=== PATIENT | male | born 1960 | race African-American/Black ===

== ENCOUNTER 2017-10-21 21:05 | Inpatient (IN) | payer MEDICARE, MEDICAID ==
[~2017-10-21] VITALS: Ht 170.2 cm; Wt 78.4 kg
[2017-10-21 22:14] LABS: BASOPHILS % (AUTO) 0.7 % (0.0-2.0); EOSINOPHILS % (AUTO) 1.2 % (0.0-3.0); HEMATOCRIT 33.3 % (42.0-52.0); LYMPHOCYTES % (AUTO) 6.7 % (20.0-45.0); MEAN CORPUSCULAR VOLUME 93 FL (80-99); MONOCYTES % (AUTO) 11.7 % (1.0-10.0); NEUTROPHILS % (AUTO) 79.8 % (45.0-75.0); PLATELET COUNT 263 K/UL (150-450); RED BLOOD COUNT 3.58 M/UL (4.70-6.10); RED CELL DISTRIBUTION WIDTH 12.5 % (11.6-14.8); WHITE BLOOD COUNT 6.7 K/UL (4.8-10.8)
[2017-10-21 22:26] LABS: ANION GAP 12 mmol/L (5-15); BLOOD UREA NITROGEN 30 mg/dL (7-18); CALCIUM 9.6 MG/DL (8.5-10.1); CARBON DIOXIDE 29 MMOL/L (21-32); CHLORIDE 95 MMOL/L (98-107); CREATININE 8.4 MG/DL (0.55-1.30); INR 1.1 (0.9-1.1); POTASSIUM 3.5 MMOL/L (3.5-5.1); SODIUM 136 MMOL/L (136-145)
[2017-10-21 22:39] LABS: ALANINE AMINOTRANSFERASE 34 U/L (12-78); ALBUMIN 3.6 G/DL (3.4-5.0); ALBUMIN/GLOBULIN RATIO 0.9 (1.0-2.7); ALKALINE PHOSPHATASE 45 U/L (46-116); ASPARTATE AMINO TRANSFERASE 18 U/L (15-37); BILIRUBIN,TOTAL 0.5 MG/DL (0.2-1.0); CKMB 1.6 NG/ML (0.0-3.6); CREATINE KINASE 214 U/L (26-308)
[2017-10-21 22:59] VITALS: BP 130/70
[2017-10-21] MEDS ORDERED: CATAPRES0.3 MG ORAL (23:00)
[2017-10-21] MEDS ORDERED: MINOXIDIL10 MG PO (23:00)
[2017-10-21] MEDS ORDERED: RENVELA0.8 GM ORAL (23:00)
[2017-10-21] MEDS ORDERED: SENSIPAR30 MG ORAL (23:00)
[2017-10-21] MEDS ORDERED: LOSARTAN POTASS50 MG ORAL (23:00)
[2017-10-21] MEDS ORDERED: ADALAT20 MG ORAL (23:00)
[2017-10-21] MEDS ORDERED: METOPROLOL SUCC50 MG ORAL (23:00)
[2017-10-21] MEDS ORDERED: FUROSEMIDE40 MG ORAL (23:00)
[2017-10-22 01:00] VITALS: BP 145/87
[2017-10-22] MEDS ORDERED: Morphine Sulfate 2mg/ml Inj IVP PRN (03:00)
[2017-10-22 04:00] VITALS: BP 141/86
--- NOTE | 2017-10-22 04:39 | Emergency Room Report ---
History of Present Illness General Chief Complaint: Palpitations Source: Patient Present Illness HPI The patient is a 57-year-old male who presented after increased palpitations. Patient prior history of end-stage renal disease. He had been undergoing dialysis when he began having some palpitations. Patient recently had medications altered and was recently started on minoxidil for blood pressure. The patient stated that he began retaining water. He denied prior history of myocardial infarction. Patient had not been vomiting. He denied any shortness of breath. He reported having intermittent chest pain. Allergies: Coded Allergies: CODEINE (Verified Allergy, Unknown, 10/21/17) Patient History Past Medical History: see triage record Reviewed Nursing Documentation: PMH: Agreed, PSxH: Agreed Nursing Documentation-PMH Past Medical History: No History, Except For Hx Cardiac Problems: Yes - cardiac arrest 2016 Hx Hypertension: Yes Hx Dialysis: Yes - MF Hx Neurological Problems: No Review of Systems All Other Systems: negative except mentioned in HPI Physical Exam Vital Signs Date Time Temp Pulse Resp B/P (MAP) Pulse Ox O2 Delivery O2 Flow Rate FiO2 10/21/17 21:04 98.6 121 18 137/81 98 Room Air 98.6 General Appearance: well appearing, no apparent distress, alert, GCS 15 Head: normocephalic, atraumatic ENT: hearing grossly normal, normal voice Neck: full range of motion, supple Respiratory: no respiratory distress, speaking full sentences Cardiovascular #1: normal peripheral pulses, edema Gastrointestinal: normal bowel sounds, non tender, soft Musculoskeletal: no calf tenderness Neurologic: normal inspection, alert, oriented x3, responsive, normal gait Psychiatric: normal inspection, mood/affect normal Skin: no rash Medical Decision Making Diagnostic Impression: Primary Impression: Palpitations Additional Impression: ESRD (end stage renal disease) on dialysis ER Course Patient presented for palpitations. The differential diagnosis included was not limited to arrhythmia, thyroid storm, sepsis, anemia, myocardial infarction , alcohol withdrawal, stimulant abuse, caffeine overdose among others. Because of complexity of patient's case laboratory testing and imaging studies were ordered.I laboratory testing was notable for normal troponin. I EKG interpreted by me showed normal sinus rhythm with a slight prolonged QT interval there are no acute ST changes noted. The patient was noted to have some evidence of fluid overload. A chest x-ray had improvement showed mild cardiomegaly without evident infiltrate.Dr. Arvind Soler was contacted for inpatient management. Labs Test 10/21/17 21:53 White Blood Count 6.7 K/UL (4.8-10.8) Red Blood Count 3.58 M/UL (4.70-6.10) Hemoglobin 11.0 G/DL (14.2-18.0) Hematocrit 33.3 % (42.0-52.0) Mean Corpuscular Volume 93 FL (80-99) Mean Corpuscular Hemoglobin 30.9 PG (27.0-31.0) Mean Corpuscular Hemoglobin Concent 33.2 G/DL (32.0-36.0) Red Cell Distribution Width 12.5 % (11.6-14.8) Platelet Count 263 K/UL (150-450) Mean Platelet Volume 6.2 FL (6.5-10.1) Neutrophils (%) (Auto) 79.8 % (45.0-75.0) Lymphocytes (%) (Auto) 6.7 % (20.0-45.0) Monocytes (%) (Auto) 11.7 % (1.0-10.0) Eosinophils (%) (Auto) 1.2 % (0.0-3.0) Basophils (%) (Auto) 0.7 % (0.0-2.0) Prothrombin Time 11.4 SEC (9.30-11.50) Prothromb Time International Ratio 1.1 (0.9-1.1) Activated Partial Thromboplast Time 28 SEC (23-33) Sodium Level 136 MMOL/L (136-145) Potassium Level 3.5 MMOL/L (3.5-5.1) Chloride Level 95 MMOL/L (98-107) Carbon Dioxide Level 29 MMOL/L (21-32) Anion Gap 12 mmol/L (5-15) Blood Urea Nitrogen 30 mg/dL (7-18) Creatinine 8.4 MG/DL (0.55-1.30) Estimat Glomerular Filtration Rate 8.0 mL/min (>60) Glucose Level 85 MG/DL (74-106) Calcium Level 9.6 MG/DL (8.5-10.1) Total Bilirubin 0.5 MG/DL (0.2-1.0) Aspartate Amino Transf (AST/SGOT) 18 U/L (15-37) Alanine Aminotransferase (ALT/SGPT) 34 U/L (12-78) Alkaline Phosphatase 45 U/L (46-116) Total Creatine Kinase 214 U/L (26-308) Creatine Kinase MB 1.6 NG/ML (0.0-3.6) Creatine Kinase MB Relative Index 0.7 Troponin I 0.097 ng/mL (0.000-0.056) Pro-B-Type Natriuretic Peptide 65471 pg/mL (0-125) Total Protein 7.8 G/DL (6.4-8.2) Albumin 3.6 G/DL (3.4-5.0) Globulin 4.2 g/dL Albumin/Globulin Ratio 0.9 (1.0-2.7) EKG Diagnostic Results Rate: normal Rhythm: NSR ST Segments: no acute changes Rhythm Strip Diag. Results EP Interpretation: yes Rhythm: NSR, no PVC's, no ectopy Last Vital Signs Date Time Temp Pulse Resp B/P (MAP) Pulse Ox O2 Delivery O2 Flow Rate FiO2 10/22/17 04:00 77 10/22/17 01:00 99.0 20 145/87 94 Room Air 99.0 Status: unchanged Disposition: ADMITTED INPATIENT Condition: Stable Referrals: NON PHYSICIAN (PCP) Ruslan Warren Oct 22, 2017 04:39
[2017-10-22 08:00] VITALS: BP 134/73
[2017-10-22] MEDS: Heparin 5000 units/ml inj SUBQ SCH ×2 (08:10→23:57)
--- NOTE | 2017-10-22 10:42 | Diagnostic Imaging Report ---
Indication: Dyspnea Comparison: None A single view chest radiograph was obtained. Findings: No definite infiltrate or pulmonary vascular congestion identified. The left hemidiaphragm is slightly elevated. The heart is enlarged. The aorta is mildly enlarged consistent with atherosclerotic vascular disease. The bones are unremarkable. Impression: No acute disease
--- NOTE | 2017-10-22 10:52 | Consultation ---
Consult Note Consult Note The patient is a 57-year-old male who presented after increased palpitations. Patient prior history of end-stage renal disease. He had been undergoing dialysis when he began having some palpitations. Patient recently had medications altered and was recently started on minoxidil for blood pressure. The patient stated that he began retaining water. He denied prior history of myocardial infarction. Patient had not been vomiting. He denied any shortness of breath. He reported having intermittent chest pain. Allergies: Coded Allergies: CODEINE (Verified Allergy, Unknown, 10/21/17) Past Medical History: No History, Except For Hx Cardiac Problems: Yes - cardiac arrest 2016 Hx Hypertension: Yes Hx Dialysis: Yes - MF interviewed examined data reviewed . Assessment/Plan CHF Cardiac Ischemia' ESRD Plan: HD and UF today Adjust BP meds per orders VERONA HONEYCUTT Oct 22, 2017 10:52
[2017-10-22 12:00] VITALS: BP 145/82
[2017-10-22] MEDS: Renvela 800mg Pkt ORAL SCH ×2 (13:46→17:05)
[2017-10-22] MEDS: cloNIDine 0.2mg Tab ORAL SCH ×2 (14:00→23:54)
--- NOTE | 2017-10-22 14:22 | Cardiac Electrophysiology PN ---
Subjective Subjective Cardiology consult dictated Objective Last 24 Hour Vital Signs Date Time Temp Pulse Resp B/P (MAP) Pulse Ox O2 Delivery O2 Flow Rate FiO2 10/22/17 12:00 97.9 78 18 145/82 94 Nasal Cannula 2.0 97.9 10/22/17 08:00 98.5 75 18 134/73 96 Nasal Cannula 2.0 98.5 10/22/17 08:00 84 10/22/17 04:00 98.8 74 19 141/86 96 Nasal Cannula 2.0 98.8 10/22/17 04:00 77 10/22/17 01:00 99.0 76 20 145/87 94 Room Air 99.0 10/22/17 00:15 98.6 79 23 130/70 95 Room Air 98.6 10/22/17 00:00 81 10/21/17 22:59 79 23 130/70 95 Room Air 10/21/17 21:04 98.6 121 18 137/81 98 Room Air 98.6 Intake and Output 10/21/17 10/22/17 19:00 07:00 Intake Total 0 ml Balance 0 ml Intake Oral 0 ml Laboratory Tests Test 10/21/17 21:53 10/22/17 09:23 White Blood Count 6.7 K/UL (4.8-10.8) Red Blood Count 3.58 M/UL (4.70-6.10) L Hemoglobin 11.0 G/DL (14.2-18.0) L Hematocrit 33.3 % (42.0-52.0) L Mean Corpuscular Volume 93 FL (80-99) Mean Corpuscular Hemoglobin 30.9 PG (27.0-31.0) Mean Corpuscular Hemoglobin Concent 33.2 G/DL (32.0-36.0) Red Cell Distribution Width 12.5 % (11.6-14.8) Platelet Count 263 K/UL (150-450) Mean Platelet Volume 6.2 FL (6.5-10.1) L Neutrophils (%) (Auto) 79.8 % (45.0-75.0) H Lymphocytes (%) (Auto) 6.7 % (20.0-45.0) L Monocytes (%) (Auto) 11.7 % (1.0-10.0) H Eosinophils (%) (Auto) 1.2 % (0.0-3.0) Basophils (%) (Auto) 0.7 % (0.0-2.0) Prothrombin Time 11.4 SEC (9.30-11.50) Prothromb Time International Ratio 1.1 (0.9-1.1) Activated Partial Thromboplast Time 28 SEC (23-33) Sodium Level 136 MMOL/L (136-145) Potassium Level 3.5 MMOL/L (3.5-5.1) Chloride Level 95 MMOL/L (98-107) L Carbon Dioxide Level 29 MMOL/L (21-32) Anion Gap 12 mmol/L (5-15) Blood Urea Nitrogen 30 mg/dL (7-18) H Creatinine 8.4 MG/DL (0.55-1.30) H Estimat Glomerular Filtration Rate 8.0 mL/min (>60) Glucose Level 85 MG/DL (74-106) Calcium Level 9.6 MG/DL (8.5-10.1) Total Bilirubin 0.5 MG/DL (0.2-1.0) Aspartate Amino Transf (AST/SGOT) 18 U/L (15-37) Alanine Aminotransferase (ALT/SGPT) 34 U/L (12-78) Alkaline Phosphatase 45 U/L (46-116) L Total Creatine Kinase 214 U/L (26-308) Creatine Kinase MB 1.6 NG/ML (0.0-3.6) Creatine Kinase MB Relative Index 0.7 Troponin I 0.097 ng/mL (0.000-0.056) 0.502 ng/mL (0.000-0.056) Pro-B-Type Natriuretic Peptide 53815 pg/mL (0-125) H Total Protein 7.8 G/DL (6.4-8.2) Albumin 3.6 G/DL (3.4-5.0) Globulin 4.2 g/dL Albumin/Globulin Ratio 0.9 (1.0-2.7) L C-Reactive Protein, Quantitative 1.0 mg/dL (0.00-0.90) H RIVKA YU Oct 22, 2017 14:22
[2017-10-22 16:00] VITALS: BP 161/86
--- NOTE | 2017-10-22 16:30 | History and Physical Report ---
DATE OF ADMISSION: 10/21/2017 ATTENDING PHYSICIAN: Arvind Soler D.O. CONSULTANTS: 1. Dino Ordaz M.D. 2. Luiz Gallagher M.D. CHIEF COMPLAINT: Palpitation, ESRD, and tachycardia. BRIEF HISTORY: A 57-year-old male with a history of ESRD. Apparently has some palpitations yesterday. His Nephrology recently started minoxidil, after which he became having palpitations and tachycardic, came to [facility] last night, and admitted for the above-mentioned diagnoses. Currently calm in bed, O2 NC, slightly short of breath, no complaint otherwise. PAST MEDICAL HISTORY: Palpitation, ESRD, tachycardia, hypertension, and elevated troponin. PAST SURGICAL HISTORY: Fistula, left arm. MEDICATIONS: Heparin, dextrose, morphine, Tylenol, and Zofran. ALLERGIES: Codeine. SOCIAL HISTORY: No smoking. No alcohol. No intravenous drug abuse. FAMILY HISTORY: Noncontributory. REVIEW OF SYSTEMS: Slight chest pain. Slight shortness of breath. No nausea, vomiting, or diarrhea. PHYSICAL EXAMINATION: GENERAL: Calm in bed, oriented x3, in no acute distress. O2 NC in place. VITAL SIGNS: Temperature is 98 degrees, pulse 75, respirations 18, and blood pressure 134/73. CARDIOVASCULAR: No murmur. LUNGS: Poor exchange. ABDOMEN: Bowel sounds distant. EXTREMITIES: No cyanosis, clubbing, or edema. NEUROLOGIC: The patient moves all extremities, slightly weak. LABORATORY AND DIAGNOSTIC DATA: Hemoglobin and hematocrit 11/33, otherwise, CBC is normal. BMP shows chloride 95. BUN and creatinine 30/8.4. Alkaline phosphatase 45. Troponin 0.097. BNP is 21,722. INR is 1.1 and PTT is 28. ASSESSMENT: 1. Palpitations. 2. End-stage renal disease. 3. Chest pain. 4. Elevated troponin. 5. Tachycardia. 6. Hypertension. PLAN: 1. Continue premedications. 2. Dialysis per Nephrology. 3. Blood pressure control. 4. Pain control. 5. Dietary followup. 6. We will continue to follow this patient medically. 7. CBC and BMP in the morning. Arvind Soler D.O. DR: Luis Manuel JOB#: [id number] CC:
[2017-10-22] MEDS: Losartan 50mg tab ORAL SCH (17:05)
[2017-10-22 20:00] VITALS: BP 185/95
[2017-10-23] VITALS (7 sets, daily range): BP systolic 144–166; BP diastolic 79–93
[2017-10-23 04:19] LABS: BASOPHILS % (AUTO) 1.1 % (0.0-2.0); EOSINOPHILS % (AUTO) 4.9 % (0.0-3.0); HEMATOCRIT 27.9 % (42.0-52.0); HEMOGLOBIN 9.3 G/DL (14.2-18.0); MEAN CORPUSCULAR VOLUME 93 FL (80-99); MONOCYTES % (AUTO) 18.1 % (1.0-10.0); PLATELET COUNT 245 K/UL (150-450); RED CELL DISTRIBUTION WIDTH 12.3 % (11.6-14.8)
--- NOTE | 2017-10-23 04:30 | Consultation ---
DATE OF CONSULTATION: 10/22/2017 NOTE: POOR AUDIO CARDIOLOGY CONSULTATION CONSULTING PHYSICIAN: Dino Ordaz M.D. REFERRING PHYSICIAN: Arvind Soler D.O. REASON FOR CONSULTATION: Tachycardia and palpitation. HISTORY OF PRESENT ILLNESS: The patient is a 57-year-old, gentleman with history of hypertension, diabetes, and end-stage renal disease, on hemodialysis, who was undergoing hemodialysis when he suddenly started developing palpitation. The patient about three weeks ago was started on minoxidil for blood pressure and he states that he has been retaining water. He states that they veda four liters of fluid during hemodialysis and then he started having palpitation. Heart rate was around 140 reportedly. The patient was admitted and Cardiology consultation was requested for further evaluation and management. Troponin was also elevated. PAST MEDICAL HISTORY: As mentioned above. SOCIAL HISTORY: He lives at home. Does not smoke or drink alcohol. FAMILY HISTORY: Noncontributory. REVIEW OF SYSTEMS: Review of systems was negative other than what was mentioned in the history of present illness. PHYSICAL EXAMINATION: VITAL SIGNS: Blood pressure is 140/82, pulse 78, respirations 18, and temperature 98. HEAD AND NECK: Showed no JVD. LUNGS: Clear. CARDIOVASCULAR: Shows regular S1 and S2 with no gallop or murmur. ABDOMEN: Soft. EXTREMITIES: He has 2+ lower extremity edema as well as AV fistula, left arm. LABORATORY AND DIAGNOSTIC DATA: His EKG shows sinus rhythm with left anterior fascicular block and nonspecific ST-T wave abnormalities. His labs show white count of 6.7, hemoglobin 11, hematocrit 33, and platelet count of 263. Sodium is 136, potassium 3.4, BUN of 30, creatinine 8.4, and glucose of 84. His labs show troponin of 0.09 and then 0.502. BNP is 21,000. ASSESSMENT AND PLAN: 1. Troponin elevation. limits of low level and likely due to the patient's renal failure. The patient denies any chest pain or shortness of breath. He underwent an echocardiogram that showed ejection fraction of 70% to 75% with left ventricular hypertrophy. I will get another set of cardiac enzymes. Continue Toprol-XL 50 mg daily. Add aspirin to his medical regimen. Check fasting lipid profile acute coronary syndrome. 2. Palpitations. Continue on telemetry. Continue Toprol-XL. Could be SVT or atrial fibrillation. We do not have clear documentation of arrhythmia. 3. Hypertension, on Toprol-XL 50 mg and Cozaar 50 mg b.i.d. and Procardia XL 60 mg b.i.d. and clonidine 0.2 mg every eight hours. He is also on hemodialysis. 4. End-stage renal disease, on hemodialysis per Dr. Gallagher. Thank you very much, Dr. Soler, for allowing me to participate in the care of this patient. Please do not hesitate to contact me if you have any questions regarding my evaluation. Dino Ordaz M.D. DR: Radha JOB#: [id number] CC:
[2017-10-23 04:41] LABS: ALANINE AMINOTRANSFERASE 27 U/L (12-78); ALBUMIN/GLOBULIN RATIO 0.8 (1.0-2.7); ALKALINE PHOSPHATASE 38 U/L (46-116); ANION GAP 3 mmol/L (5-15); ASPARTATE AMINO TRANSFERASE 17 U/L (15-37); BILIRUBIN,DIRECT 0.1 MG/DL (0.0-0.3); BILIRUBIN,TOTAL 0.4 MG/DL (0.2-1.0); BLOOD UREA NITROGEN 22 mg/dL (7-18); CALCIUM 8.8 MG/DL (8.5-10.1); CARBON DIOXIDE 38 MMOL/L (21-32); CHLORIDE 99 MMOL/L (98-107); CHOLESTEROL 143 MG/DL (< 200); CREATININE 7.2 MG/DL (0.55-1.30); GAMMA GLUTAMYL TRANSPEPTIDASE 44 U/L (5-85); HDL CHOLESTEROL 70 MG/DL (40-60); PHOSPHORUS 4.5 MG/DL (2.5-4.9); POTASSIUM 4.2 MMOL/L (3.5-5.1); SODIUM 140 MMOL/L (136-145); TRIGLYCERIDES 41 MG/DL (30-150)
[2017-10-23] MEDS: cloNIDine 0.2mg Tab ORAL SCH ×3 (06:19→21:33)
[2017-10-23] MEDS: Metoprolol Succinate XL 50mg tab ORAL SCH (08:08)
[2017-10-23] MEDS: Losartan 50mg tab ORAL SCH ×2 (08:08→18:13)
[2017-10-23] MEDS: Renvela 800mg Pkt ORAL SCH ×3 (08:09→18:12)
[2017-10-23] MEDS: Sensipar 30mg Tab ORAL SCH (08:09)
[2017-10-23] MEDS: Heparin 5000 units/ml inj SUBQ SCH ×2 (08:10→21:32)
--- NOTE | 2017-10-23 09:14 | General Progress Note ---
Assessment/Plan Problem List: (1) HTN (hypertension) ICD Codes: I10 - Essential (primary) hypertension SNOMED: 18363479 (2) Palpitations ICD Codes: R00.2 - Palpitations SNOMED: 72029115 (3) ESRD (end stage renal disease) on dialysis ICD Codes: N18.6 - End stage renal disease; Z99.2 - Dependence on renal dialysis SNOMED: 172510161 Status: stable, progressing, tolerating diet Assessment/Plan o2 pulm tx cardio neph f/u cbc bmp am dc plan Subjective Constitutional: Reports: weakness Allergies: Coded Allergies: CODEINE (Verified Allergy, Mild, 10/22/17) VOMITING All Systems: reviewed and negative except above Subjective calm no cp Objective Last 24 Hour Vital Signs Date Time Temp Pulse Resp B/P (MAP) Pulse Ox O2 Delivery O2 Flow Rate FiO2 10/23/17 08:09 76 144/79 10/23/17 08:08 76 144/79 10/23/17 08:08 144/79 10/23/17 08:00 98.2 76 18 144/79 97 Nasal Cannula 2.0 98.2 10/23/17 06:19 178/83 10/23/17 04:00 98.2 77 18 153/79 97 Nasal Cannula 2.0 98.2 10/23/17 04:00 77 10/23/17 01:03 91 162/93 Nasal Cannula 2.0 10/23/17 00:00 98.8 97 20 166/87 93 98.8 10/23/17 00:00 99 10/22/17 23:54 189/87 10/22/17 22:30 Nasal Cannula 2.0 10/22/17 20:00 87 10/22/17 20:00 97.0 80 18 185/95 99 97.0 10/22/17 18:55 Nasal Cannula 2.0 10/22/17 17:06 82 161/86 10/22/17 17:05 161/86 10/22/17 16:00 98.2 83 22 161/86 94 Nasal Cannula 2.0 98.2 10/22/17 16:00 82 10/22/17 14:00 145/82 10/22/17 12:00 97.9 78 18 145/82 94 Nasal Cannula 2.0 97.9 10/22/17 12:00 80 Intake and Output 10/22/17 10/23/17 19:00 07:00 Intake Total 800 ml Output Total 3660 ml Balance 800 ml -3660 ml Intake Oral 800 ml Output Urine Total 200 ml Hemodialysis UF 3460 ml # Bowel Movements 1 Laboratory Tests 10/22/17 09:23: Troponin I 0.502H, C-Reactive Protein, Quantitative 1.0H 10/22/17 15:15: Troponin I 0.411H 10/22/17 19:39: Troponin I 0.379H 10/23/17 03:50: Troponin I 0.287H, C-Reactive Protein, Quantitative 0.8, White Blood Count 5.0, Red Blood Count 3.00L, Hemoglobin 9.3L, Hematocrit 27.9L, Mean Corpuscular Volume 93, Mean Corpuscular Hemoglobin 31.1H, Mean Corpuscular Hemoglobin Concent 33.5, Red Cell Distribution Width 12.3, Platelet Count 245, Mean Platelet Volume 5.8L, Neutrophils (%) (Auto) 56.0, Lymphocytes (%) (Auto) 20.0, Monocytes (%) (Auto) 18.1H, Eosinophils (%) (Auto) 4.9H, Basophils (%) (Auto) 1.1, Sodium Level 140, Potassium Level 4.2, Chloride Level 99, Carbon Dioxide Level 38H, Anion Gap 3L, Blood Urea Nitrogen 22H, Creatinine 7.2H, Estimat Glomerular Filtration Rate 9.6, Glucose Level 93, Hemoglobin A1c 5.6, Uric Acid 2.4L, Calcium Level 8.8, Phosphorus Level 4.5, Magnesium Level 1.8, Total Bilirubin 0.4, Direct Bilirubin 0.1, Gamma Glutamyl Transpeptidase 44, Aspartate Amino Transf (AST/SGOT) 17, Alanine Aminotransferase (ALT/SGPT) 27, Alkaline Phosphatase 38L, Pro-B-Type Natriuretic Peptide 69481E, Total Protein 6.7, Albumin 3.0L, Globulin 3.7, Albumin/Globulin Ratio 0.8L, Triglycerides Level 41, Cholesterol Level 143, LDL Cholesterol 68, HDL Cholesterol 70H, Cholesterol/HDL Ratio 2.0L, Thyroid Stimulating Hormone (TSH) 1.805, Free Thyroxine 1.10 Height (Feet): 5 Height (Inches): 7.00 Weight (Pounds): 172 General Appearance: alert EENT: normal ENT inspection Neck: normal alignment Cardiovascular: normal peripheral pulses, normal rate, regular rhythm Respiratory/Chest: chest wall non-tender, lungs clear, normal breath sounds Abdomen: normal bowel sounds, non tender, soft Extremities: normal inspection Edema: no edema noted Arm (L), no edema noted Arm (R), no edema noted Leg (L), no edema noted Leg (R), no edema noted Pedal (L), no edema noted Pedal (R), no edema noted Generalized Neurologic: responsive, motor weakness Skin: normal pigmentation, warm/dry SHANE RAINES Oct 23, 2017 09:14
--- NOTE | 2017-10-23 11:48 | Nephrology Progress Note ---
Assessment/Plan Problem List: (1) ESRD (end stage renal disease) on dialysis (2) HTN (hypertension) Assessment CHF Cardiac Ischemia' ESRD Plan Plan: HD and UF yesterday Next HD in am if still in house Adjust BP meds per orders / cardiology Subjective ROS Limited/Unobtainable: No Objective Objective Last 24 Hour Vital Signs Date Time Temp Pulse Resp B/P (MAP) Pulse Ox O2 Delivery O2 Flow Rate FiO2 10/23/17 08:09 76 144/79 10/23/17 08:08 76 144/79 10/23/17 08:08 144/79 10/23/17 08:00 98.2 76 18 144/79 97 Nasal Cannula 2.0 98.2 10/23/17 08:00 71 10/23/17 06:19 178/83 10/23/17 04:00 98.2 77 18 153/79 97 Nasal Cannula 2.0 98.2 10/23/17 04:00 77 10/23/17 01:03 91 162/93 Nasal Cannula 2.0 10/23/17 00:00 98.8 97 20 166/87 93 98.8 10/23/17 00:00 99 10/22/17 23:54 189/87 10/22/17 22:30 Nasal Cannula 2.0 10/22/17 20:00 87 10/22/17 20:00 97.0 80 18 185/95 99 97.0 10/22/17 18:55 Nasal Cannula 2.0 10/22/17 17:06 82 161/86 10/22/17 17:05 161/86 10/22/17 16:00 98.2 83 22 161/86 94 Nasal Cannula 2.0 98.2 10/22/17 16:00 82 10/22/17 14:00 145/82 10/22/17 12:00 97.9 78 18 145/82 94 Nasal Cannula 2.0 97.9 10/22/17 12:00 80 Intake and Output 10/22/17 10/23/17 19:00 07:00 Intake Total 800 ml Output Total 3660 ml Balance 800 ml -3660 ml Intake Oral 800 ml Output Urine Total 200 ml Hemodialysis UF 3460 ml # Bowel Movements 1 Laboratory Tests 10/22/17 15:15: Troponin I 0.411H 10/22/17 19:39: Troponin I 0.379H 10/23/17 03:50: Troponin I 0.287H, White Blood Count 5.0, Red Blood Count 3.00L, Hemoglobin 9.3L , Hematocrit 27.9L, Mean Corpuscular Volume 93, Mean Corpuscular Hemoglobin 31.1H, Mean Corpuscular Hemoglobin Concent 33.5, Red Cell Distribution Width 12.3, Platelet Count 245, Mean Platelet Volume 5.8L, Neutrophils (%) (Auto) 56.0 , Lymphocytes (%) (Auto) 20.0, Monocytes (%) (Auto) 18.1H, Eosinophils (%) (Auto ) 4.9H, Basophils (%) (Auto) 1.1, Sodium Level 140, Potassium Level 4.2, Chloride Level 99, Carbon Dioxide Level 38H, Anion Gap 3L, Blood Urea Nitrogen 22H, Creatinine 7.2H, Estimat Glomerular Filtration Rate 9.6, Glucose Level 93, Hemoglobin A1c 5.6, Uric Acid 2.4L, Calcium Level 8.8, Phosphorus Level 4.5, Magnesium Level 1.8, Total Bilirubin 0.4, Direct Bilirubin 0.1, Gamma Glutamyl Transpeptidase 44, Aspartate Amino Transf (AST/SGOT) 17, Alanine Aminotransferase (ALT/SGPT) 27, Alkaline Phosphatase 38L, C-Reactive Protein, Quantitative 0.8, Pro-B-Type Natriuretic Peptide 10040K, Total Protein 6.7, Albumin 3.0L, Globulin 3.7, Albumin/Globulin Ratio 0.8L, Triglycerides Level 41 , Cholesterol Level 143, LDL Cholesterol 68, HDL Cholesterol 70H, Cholesterol/ HDL Ratio 2.0L, Thyroid Stimulating Hormone (TSH) 1.805, Free Thyroxine 1.10 Height (Feet): 5 Height (Inches): 7.00 Weight (Pounds): 172 General Appearance: no apparent distress, other - feels better Cardiovascular: regular rhythm Respiratory/Chest: decreased breath sounds Abdomen: soft VERONA HONEYCUTT Oct 23, 2017 11:48
--- NOTE | 2017-10-23 15:45 | Cardiology Report ---
APPROVED REPORT EXAM: Two-dimensional and M-mode echocardiogram with Doppler and color Doppler. INDICATION HYPERTENSION M-Mode DIMENSIONS IVSd1.7 (0.7-1.1cm)Left Atrium (MM)4.5 (1.6-4.0cm) LVDd4.8 (3.5-5.6cm)Aortic Root4.8 (2.0-3.7cm) PWd1.8 (0.7-1.1cm)Aortic Cusp Exc.2.5 (1.5-2.0cm) IVSs2.7 cm LVDs2.7 (2.5-4.0cm) PWs1.8 cm Normal left ventricular chamber size, systolic function and wall motion. Left ventricular ejection fraction estimated to be 70-75 %. Moderate to severe left ventricular hypertrophy by 2-D. No evidence of pericardial effusion Mild bi-atrial enlargements . Mildly Focal aortic valve sclerosis . Mildly Thickened mitral valve leaflets . Mitral annulus and aortic root calcification. Normal Pulmonic valve structure. Normal tricuspid valve structure. IVC at size 2.7 without physiologic collapse, suggestive of increased RA pressure. A color flow and spectral Doppler study was performed and revealed: No aortic regurgitation. Mild to moderate mitral regurgitation. Normal left ventricular diastolic function . Trace to Mild tricuspid regurgitation. Tricuspid systolic velocities suggests peak right ventricular systolic pressure of 18 mmH . trace Pulmonic regurgitation present
[2017-10-24] VITALS (7 sets, daily range): BP systolic 144–203; BP diastolic 80–116
[2017-10-24] MEDS: cloNIDine 0.2mg Tab ORAL SCH ×3 (06:00→20:47)
[2017-10-24] MEDS: Metoprolol Succinate XL 50mg tab ORAL SCH (09:00)
[2017-10-24] MEDS: Losartan 50mg tab ORAL SCH ×2 (09:00→18:00)
[2017-10-24 09:15] LABS: BASOPHILS % (AUTO) 0.8 % (0.0-2.0); EOSINOPHILS % (AUTO) 7.5 % (0.0-3.0); HEMATOCRIT 29.8 % (42.0-52.0); HEMOGLOBIN 9.8 G/DL (14.2-18.0); LYMPHOCYTES % (AUTO) 24.7 % (20.0-45.0); MEAN CORPUSCULAR VOLUME 94 FL (80-99); MONOCYTES % (AUTO) 16.5 % (1.0-10.0); NEUTROPHILS % (AUTO) 50.6 % (45.0-75.0); PLATELET COUNT 237 K/UL (150-450); RED BLOOD COUNT 3.18 M/UL (4.70-6.10); RED CELL DISTRIBUTION WIDTH 12.4 % (11.6-14.8); WHITE BLOOD COUNT 4.3 K/UL (4.8-10.8)
[2017-10-24 09:32] LABS: ANION GAP 7 mmol/L (5-15); BLOOD UREA NITROGEN 34 mg/dL (7-18); CALCIUM 9.8 MG/DL (8.5-10.1); CARBON DIOXIDE 36 MMOL/L (21-32); CHLORIDE 98 MMOL/L (98-107); CREATININE 10.8 MG/DL (0.55-1.30); POTASSIUM 4.5 MMOL/L (3.5-5.1); SODIUM 141 MMOL/L (136-145)
[2017-10-24] MEDS: Sensipar 30mg Tab ORAL SCH (09:41)
[2017-10-24] MEDS: Renvela 800mg Pkt ORAL SCH ×3 (09:41→18:00)
[2017-10-24] MEDS: Heparin 5000 units/ml inj SUBQ SCH ×2 (09:42→20:47)
[2017-10-24] MEDS ORDERED: Lexiscan 0.4mg/5ml syringe IV PRN (13:00)
--- NOTE | 2017-10-24 13:53 | Nephrology Progress Note ---
Assessment/Plan Problem List: (1) ESRD (end stage renal disease) on dialysis (2) HTN (hypertension) Assessment CHF Cardiac Ischemia' ESRD Plan Plan: HD and UF 10/22 now again 10/24 Next HD 10/24 Adjust BP meds per orders / cardiology Subjective ROS Limited/Unobtainable: No Constitutional: Reports: malaise Objective Objective Last 24 Hour Vital Signs Date Time Temp Pulse Resp B/P (MAP) Pulse Ox O2 Delivery O2 Flow Rate FiO2 10/24/17 12:00 98.2 75 19 162/116 99 Nasal Cannula 2.0 98.2 10/24/17 09:00 76 158/97 10/24/17 09:00 158/97 10/24/17 08:00 77 10/24/17 08:00 97.9 76 20 158/97 96 Nasal Cannula 2.0 97.9 10/24/17 06:00 144/80 10/24/17 04:00 82 10/24/17 04:00 96.6 71 22 144/80 95 Nasal Cannula 2.0 96.6 10/24/17 00:00 97.7 69 22 149/86 95 Nasal Cannula 2.0 97.7 10/24/17 00:00 70 10/23/17 21:33 151/89 10/23/17 20:00 98.1 75 20 151/89 92 Room Air 98.1 10/23/17 20:00 77 10/23/17 18:13 152/81 10/23/17 18:12 69 152/81 10/23/17 16:00 74 10/23/17 16:00 98.1 69 20 152/81 93 Nasal Cannula 2.0 98.1 10/23/17 14:47 144/79 Intake and Output 10/23/17 10/24/17 19:00 07:00 Intake Total 800 ml Output Total 300 ml 600 ml Balance 500 ml -600 ml Intake Oral 800 ml Output Urine Total 300 ml 600 ml Laboratory Tests 10/23/17 20:05: Troponin I 0.184H 10/24/17 08:20: White Blood Count 4.3L, Red Blood Count 3.18L, Hemoglobin 9.8L, Hematocrit 29.8L , Mean Corpuscular Volume 94, Mean Corpuscular Hemoglobin 30.7, Mean Corpuscular Hemoglobin Concent 32.8, Red Cell Distribution Width 12.4, Platelet Count 237, Mean Platelet Volume 6.4L, Neutrophils (%) (Auto) 50.6, Lymphocytes ( %) (Auto) 24.7, Monocytes (%) (Auto) 16.5H, Eosinophils (%) (Auto) 7.5H, Basophils (%) (Auto) 0.8, Sodium Level 141, Potassium Level 4.5, Chloride Level 98, Carbon Dioxide Level 36H, Anion Gap 7, Blood Urea Nitrogen 34H, Creatinine 10.8H, Estimat Glomerular Filtration Rate 5.9, Glucose Level 95, Calcium Level 9.8 Height (Feet): 5 Height (Inches): 7.00 Weight (Pounds): 169 General Appearance: no apparent distress Objective no change VERONA HONEYCUTT 5, 2018 13:53
--- NOTE | 2017-10-24 14:09 | General Progress Note ---
Assessment/Plan Problem List: (1) HTN (hypertension) ICD Codes: I10 - Essential (primary) hypertension SNOMED: 58020094 (2) Palpitations ICD Codes: R00.2 - Palpitations SNOMED: 77133035 (3) ESRD (end stage renal disease) on dialysis ICD Codes: N18.6 - End stage renal disease; Z99.2 - Dependence on renal dialysis SNOMED: 976572054 Status: unchanged Assessment/Plan o2 pulm tx cardio neph f/u cbc bmp am dc plan Subjective Constitutional: Reports: weakness Allergies: Coded Allergies: CODEINE (Verified Allergy, Mild, 10/22/17) VOMITING All Systems: reviewed and negative except above Subjective calm no chest pain gettingstress test Objective Last 24 Hour Vital Signs Date Time Temp Pulse Resp B/P (MAP) Pulse Ox O2 Delivery O2 Flow Rate FiO2 10/24/17 12:00 98.2 75 19 162/116 99 Nasal Cannula 2.0 98.2 10/24/17 09:00 76 158/97 10/24/17 09:00 158/97 10/24/17 08:00 77 10/24/17 08:00 97.9 76 20 158/97 96 Nasal Cannula 2.0 97.9 10/24/17 06:00 144/80 10/24/17 04:00 82 10/24/17 04:00 96.6 71 22 144/80 95 Nasal Cannula 2.0 96.6 10/24/17 00:00 97.7 69 22 149/86 95 Nasal Cannula 2.0 97.7 10/24/17 00:00 70 10/23/17 21:33 151/89 10/23/17 20:00 98.1 75 20 151/89 92 Room Air 98.1 10/23/17 20:00 77 10/23/17 18:13 152/81 10/23/17 18:12 69 152/81 10/23/17 16:00 74 10/23/17 16:00 98.1 69 20 152/81 93 Nasal Cannula 2.0 98.1 10/23/17 14:47 144/79 Intake and Output 10/23/17 10/24/17 19:00 07:00 Intake Total 800 ml Output Total 300 ml 600 ml Balance 500 ml -600 ml Intake Oral 800 ml Output Urine Total 300 ml 600 ml Laboratory Tests 10/23/17 20:05: Troponin I 0.184H 10/24/17 08:20: White Blood Count 4.3L, Red Blood Count 3.18L, Hemoglobin 9.8L, Hematocrit 29.8L , Mean Corpuscular Volume 94, Mean Corpuscular Hemoglobin 30.7, Mean Corpuscular Hemoglobin Concent 32.8, Red Cell Distribution Width 12.4, Platelet Count 237, Mean Platelet Volume 6.4L, Neutrophils (%) (Auto) 50.6, Lymphocytes ( %) (Auto) 24.7, Monocytes (%) (Auto) 16.5H, Eosinophils (%) (Auto) 7.5H, Basophils (%) (Auto) 0.8, Sodium Level 141, Potassium Level 4.5, Chloride Level 98, Carbon Dioxide Level 36H, Anion Gap 7, Blood Urea Nitrogen 34H, Creatinine 10.8H, Estimat Glomerular Filtration Rate 5.9, Glucose Level 95, Calcium Level 9.8 Height (Feet): 5 Height (Inches): 7.00 Weight (Pounds): 169 General Appearance: alert EENT: normal ENT inspection Neck: normal alignment Cardiovascular: normal peripheral pulses, normal rate, regular rhythm Respiratory/Chest: chest wall non-tender, lungs clear, normal breath sounds Abdomen: normal bowel sounds, non tender, soft Extremities: normal inspection Edema: no edema noted Arm (L), no edema noted Arm (R), no edema noted Leg (L), no edema noted Leg (R), no edema noted Pedal (L), no edema noted Pedal (R), no edema noted Generalized Neurologic: responsive, motor weakness Skin: normal pigmentation, warm/dry SHANE RAINES Oct 24, 2017 14:09
--- NOTE | 2017-10-24 14:18 | Cardiac Electrophysiology PN ---
Assessment/Plan Assessment/Plan 1. Troponin elevations that are low level and likely due to the patient's renal failure. The patient denies any chest pain or shortness of breath. He underwent an echocardiogram that showed ejection fraction of 70% to 75% with left ventricular hypertrophy. Continue Toprol-XL 50 mg daily and aspirin. Nuclear stress test done today pending results. 2. Palpitations. Continue on telemetry. Continue Toprol-XL. Could be SVT or atrial fibrillation. We do not have clear documentation of arrhythmia. 3. Hypertension, on Toprol-XL 50 mg, Cozaar 50 mg b.i.d., Procardia XL 60 mg b.i.d, clonidine 0.2 mg every eight hours and hemodialysis. 4. End-stage renal disease, on hemodialysis per Dr. Gallagher. Subjective Subjective No chest pain or SOB. Had nuclear stress test today.Results pending Objective Last 24 Hour Vital Signs Date Time Temp Pulse Resp B/P (MAP) Pulse Ox O2 Delivery O2 Flow Rate FiO2 10/24/17 12:00 98.2 75 19 162/116 99 Nasal Cannula 2.0 98.2 10/24/17 09:00 76 158/97 10/24/17 09:00 158/97 10/24/17 08:00 77 10/24/17 08:00 97.9 76 20 158/97 96 Nasal Cannula 2.0 97.9 10/24/17 06:00 144/80 10/24/17 04:00 82 10/24/17 04:00 96.6 71 22 144/80 95 Nasal Cannula 2.0 96.6 10/24/17 00:00 97.7 69 22 149/86 95 Nasal Cannula 2.0 97.7 10/24/17 00:00 70 10/23/17 21:33 151/89 10/23/17 20:00 98.1 75 20 151/89 92 Room Air 98.1 10/23/17 20:00 77 10/23/17 18:13 152/81 10/23/17 18:12 69 152/81 10/23/17 16:00 74 10/23/17 16:00 98.1 69 20 152/81 93 Nasal Cannula 2.0 98.1 10/23/17 14:47 144/79 Intake and Output 10/23/17 10/24/17 19:00 07:00 Intake Total 800 ml Output Total 300 ml 600 ml Balance 500 ml -600 ml Intake Oral 800 ml Output Urine Total 300 ml 600 ml Laboratory Tests Test 10/23/17 20:05 10/24/17 08:20 Troponin I 0.184 ng/mL (0.000-0.056) White Blood Count 4.3 K/UL (4.8-10.8) L Red Blood Count 3.18 M/UL (4.70-6.10) L Hemoglobin 9.8 G/DL (14.2-18.0) L Hematocrit 29.8 % (42.0-52.0) L Mean Corpuscular Volume 94 FL (80-99) Mean Corpuscular Hemoglobin 30.7 PG (27.0-31.0) Mean Corpuscular Hemoglobin Concent 32.8 G/DL (32.0-36.0) Red Cell Distribution Width 12.4 % (11.6-14.8) Platelet Count 237 K/UL (150-450) Mean Platelet Volume 6.4 FL (6.5-10.1) L Neutrophils (%) (Auto) 50.6 % (45.0-75.0) Lymphocytes (%) (Auto) 24.7 % (20.0-45.0) Monocytes (%) (Auto) 16.5 % (1.0-10.0) H Eosinophils (%) (Auto) 7.5 % (0.0-3.0) H Basophils (%) (Auto) 0.8 % (0.0-2.0) Sodium Level 141 MMOL/L (136-145) Potassium Level 4.5 MMOL/L (3.5-5.1) Chloride Level 98 MMOL/L (98-107) Carbon Dioxide Level 36 MMOL/L (21-32) H Anion Gap 7 mmol/L (5-15) Blood Urea Nitrogen 34 mg/dL (7-18) H Creatinine 10.8 MG/DL (0.55-1.30) H Estimat Glomerular Filtration Rate 5.9 mL/min (>60) Glucose Level 95 MG/DL (74-106) Calcium Level 9.8 MG/DL (8.5-10.1) Microbiology Date/Time Source Procedure Growth Status 10/21/17 23:19 Nasal Nares MRSA Culture - Final NO METHICILLIN RESISTANT STAPH AUREUS... Complete 10/21/17 23:19 Rectum VRE Culture - Final NO VANCOMYCIN RESISTANT ENTEROCOCCUS ... Complete Objective HEAD AND NECK: Showed no JVD. LUNGS: Clear. CARDIOVASCULAR: Shows regular S1 and S2 with no gallop or murmur. ABDOMEN: Soft. EXTREMITIES: He has 2+ lower extremity edema as well as AV fistula, left arm. RIVKA YU Oct 24, 2017 14:18
--- NOTE | 2017-10-24 17:40 | Diagnostic Imaging Report ---
Indications: 57-year-old male with chest pain Technique: Single day single isotope protocol utilized. Initially, resting images obtained using IV administration 10.1 millicuries 99M technetium Myoview. Subsequently, patient underwent lexiscan stress testing. See cardiology report for details. During Lexiscan infusion, IV administration 32.3 mCi 99 M technetium Myoview. SPECT and planar images obtained. SPECT images gated to 8 phases of the cardiac cycle were also obtained, and reformatted into cine images for evaluation of ejection fraction. Comparison: none Findings: Cardiology report does not describe presence or absence of symptoms during infusion. Per cardiology report, resting EKG demonstrates normal sinus rhythm. Presence or absence of ST changes during infusion is not described. Imaging demonstrates normal post stress perfusion, no fixed nor reversible post stress perfusion defects. Normal cardiac chamber size. Calculated post stress ejection fraction 70%. No focal wall motion abnormality Impression: Nonischemic clinical response to pharmacologic stress, per cardiology report Nonischemic electrocardiographic response to pharmacologic stress, per cardiology report No imaging findings to suggest ischemia, at level of stress achieved. Calculated post stress ejection fraction 70%
[2017-10-25] VITALS: BP 200/102
[2017-10-25 01:45] VITALS: BP 162/98
[2017-10-25 04:00] VITALS: BP 210/102
[2017-10-25] MEDS: cloNIDine 0.2mg Tab ORAL SCH (05:18)
[2017-10-25 08:31] LABS: BASOPHILS % (AUTO) 1.1 % (0.0-2.0); EOSINOPHILS % (AUTO) 5.5 % (0.0-3.0); HEMATOCRIT 26.5 % (42.0-52.0); HEMOGLOBIN 8.9 G/DL (14.2-18.0); LYMPHOCYTES % (AUTO) 19.4 % (20.0-45.0); MEAN CORPUSCULAR VOLUME 95 FL (80-99); MONOCYTES % (AUTO) 13.1 % (1.0-10.0); NEUTROPHILS % (AUTO) 60.9 % (45.0-75.0); PLATELET COUNT 294 K/UL (150-450); RED BLOOD COUNT 2.78 M/UL (4.70-6.10); RED CELL DISTRIBUTION WIDTH 12.4 % (11.6-14.8); WHITE BLOOD COUNT 5.2 K/UL (4.8-10.8)
[2017-10-25 08:36] LABS: ANION GAP 2 mmol/L (5-15); BLOOD UREA NITROGEN 18 mg/dL (7-18); CALCIUM 9.1 MG/DL (8.5-10.1); CARBON DIOXIDE 39 MMOL/L (21-32); CHLORIDE 101 MMOL/L (98-107); CREATININE 7.2 MG/DL (0.55-1.30); POTASSIUM 4.3 MMOL/L (3.5-5.1); SODIUM 142 MMOL/L (136-145)
[2017-10-25] MEDS: Sensipar 30mg Tab ORAL SCH (09:00)
[2017-10-25] MEDS: Heparin 5000 units/ml inj SUBQ SCH (09:00)
[2017-10-25] MEDS: Renvela 800mg Pkt ORAL SCH ×2 (09:38→09:43)
[2017-10-25] MEDS: Losartan 50mg tab ORAL SCH (09:41)
[2017-10-25 09:42] VITALS: BP 184/101
[2017-10-25] MEDS: Metoprolol Succinate XL 50mg tab ORAL SCH (09:42)
--- NOTE | 2017-10-25 13:00 | Nephrology Progress Note ---
Assessment/Plan Problem List: (1) ESRD (end stage renal disease) on dialysis (2) HTN (hypertension) Assessment CHF Cardiac Ischemia' ESRD Plan Plan: HD 10/24 Next HD 10/26 BP meds adjusted per orders / cardiology agree with DC Subjective ROS Limited/Unobtainable: No Interval Events/Complaints seen at 9.30 am Objective Objective Last 24 Hour Vital Signs Date Time Temp Pulse Resp B/P (MAP) Pulse Ox O2 Delivery O2 Flow Rate FiO2 10/25/17 09:42 90 184/101 10/25/17 09:42 90 184/101 10/25/17 09:41 184/101 10/25/17 05:18 210/102 10/25/17 04:00 98.2 87 20 210/102 93 Room Air 98.2 10/25/17 04:00 92 10/25/17 01:45 98.2 96 20 162/98 Room Air 98.2 10/25/17 01:45 Room Air 10/25/17 00:00 98.2 85 20 200/102 97 Room Air 98.2 10/25/17 00:00 79 10/24/17 22:00 Room Air 10/24/17 22:00 98.1 78 20 203/103 Room Air 98.1 10/24/17 20:50 87 199/114 10/24/17 20:00 79 10/24/17 20:00 98.1 87 20 199/114 95 Nasal Cannula 2.0 98.1 10/24/17 19:00 Room Air 21 10/24/17 19:00 97 Room Air 21 10/24/17 16:19 103/102 10/24/17 16:00 98.1 88 21 196/93 98 Nasal Cannula 2.0 98.1 10/24/17 16:00 102 Intake and Output 10/24/17 10/25/17 19:00 07:00 Intake Total 700 ml Output Total 3000 ml Balance 700 ml -3000 ml Intake Oral 700 ml Hemodialysis UF 3000 ml # Voids 3 2 Laboratory Tests 10/25/17 07:10: White Blood Count 5.2, Red Blood Count 2.78L, Hemoglobin 8.9L, Hematocrit 26.5L , Mean Corpuscular Volume 95, Mean Corpuscular Hemoglobin 31.9H, Mean Corpuscular Hemoglobin Concent 33.5, Red Cell Distribution Width 12.4, Platelet Count 294, Mean Platelet Volume 5.8L, Neutrophils (%) (Auto) 60.9, Lymphocytes ( %) (Auto) 19.4L, Monocytes (%) (Auto) 13.1H, Eosinophils (%) (Auto) 5.5H, Basophils (%) (Auto) 1.1, Sodium Level 142, Potassium Level 4.3, Chloride Level 101, Carbon Dioxide Level 39H, Anion Gap 2L, Blood Urea Nitrogen 18, Creatinine 7.2H, Estimat Glomerular Filtration Rate 9.6, Glucose Level 93, Calcium Level 9.1 Height (Feet): 5 Height (Inches): 7.00 Weight (Pounds): 172 General Appearance: no apparent distress Cardiovascular: normal rate Respiratory/Chest: decreased breath sounds Abdomen: soft Objective no change VERONA HONEYCUTT 6, 2018 13:00
--- NOTE | 2017-10-27 11:00 | Discharge Summary ---
Discharge Summary Hospital Course Date of Admission Oct 21, 2017 at 23:04 Date of Discharge Oct 25, 2017 at 10:18 Admitting Diagnosis PALPITATIONS, END STAGE RENAL DISEASE HPI Timi Badillo is a 57 year old male who was admitted on Oct 21, 2017 at 23:04 for Palpitations, End Stage Renal Disease Hospital Course [id number] Discharge Discharge Disposition Patient was discharged to Home with Home Health(06) Discharge Diagnoses: Lorena Archibald NP Oct 27, 2017 11:00
--- NOTE | 2017-10-28 00:30 | Discharge Summary 2 SIG ---
DATE OF ADMISSION: 10/21/2017 DATE OF DISCHARGE: 10/25/2017 CONSULTANTS: 1. Dino Ordaz M.D. 2. Luiz Gallagher M.D. BRIEF HOSPITAL COURSE: The patient is a 57-year-old male with history of end-stage renal disease and hypertension, apparently had palpitations while at hemodialysis. His datawarehouse developer recently started him on minoxidil. The patient started having palpitations and tachycardia. He presented to [facility] and on evaluation, initial troponin was negative. EKG showed normal sinus rhythm with slightly prolonged QT interval. There were no acute ST changes noted. He was noted to have some evidence of fluid overload. ProBNP was 21,722. His BUN was 30 and creatinine was 8.4. He had a chest x-ray done that showed mild cardiomegaly without evident infiltrates. He was then admitted for inpatient management for evaluation of palpitations and end-stage renal disease. Dr. Gallagher was consulted. He was continued on inpatient hemodialysis. He underwent cardiac evaluation. Troponins and cardiac enzymes were monitored. There was a slight elevation in troponin levels. He underwent an echocardiogram that showed ejection fraction of 70% to 75% with left ventricular hypertrophy. He was continued on Toprol-XL 50 mg daily and aspirin was added to his regimen. Lipid panel was checked. LDL was 68 and HDL 70. He was given Cozaar 50 mg b.i.d. and was continued on clonidine 0.2 mg q.8 hours and Procardia 60 mg b.i.d. On 10/24/2017, he underwent myocardial perfusion scan. Results were nonischemic. He was eventually discharged home with home health. FINAL DIAGNOSES: 1. Hypertension. 2. End-stage renal disease, on hemodialysis. 3. Acute on chronic congestive heart failure, diastolic in nature. 4. Cardiac ischemia. 5. Palpitations. 6. Troponin elevation due to the patient's renal failure. DISPOSITION: The patient was discharged home with [facility]. DISCHARGE INSTRUCTIONS: Follow up as outpatient. Arvind Soler D.O. I have been assigned to dictate discharge summary on this account and I was not involved in the patient's management. Lorena Archibald N.P. DR: SHIRA JOB#: [id number] CC:
--- NOTE | 2017-11-02 16:45 | Cardiology Report ---
APPROVED REPORT EKG Measurement Heart [id number] Normal sinus rhythm Possible Left atrial enlargement Left anterior fascicular block Left ventricular hypertrophy with QRS widening Prolonged QT Abnormal ECG
--- NOTE | 2017-11-02 16:49 | Cardiology Report ---
APPROVED REPORT EKG Measurement Heart [id number] ME 168P [id number] Normal sinus rhythm Right superior axis deviation Incomplete right bundle branch block Prolonged QT Abnormal ECG
== END 2017-10-25 10:18 | disposition home health service (06) | DRG 291 ==
LOC: EDBD 21:05 → EMR 21:46 → 2E 23:04 → EDBEDREQ 23:11 → 2E 10-22 03:01
DX: I13.2 Hypertensive heart and chronic kidney disease with heart failure and with stage 5 chronic kidney disease, or end stage renal disease (principal); N18.6 End stage renal disease; Z86.74 Personal history of sudden cardiac arrest; I50.9 Heart failure, unspecified; Z99.2 Dependence on renal dialysis; Z88.6 Allergy status to analgesic agent; R07.9 Chest pain, unspecified; R00.0 Tachycardia, unspecified; R00.2 Palpitations; I25.9 Chronic ischemic heart disease, unspecified
CPT/HCPCS: 36415; 71045; 78452; 80048; 80053; 80061; 80076; 82550; 82553; 82977; 83036; 83735; 83880; 84100; 84439; 84443; 84484; 84550; 85025; 85610; 85730; 86140; 87081; 93005; 93017; 93306; 94760; 99285; J2785